=== PATIENT | female | born 1975 ===

== ENCOUNTER 2019-05-21 06:54 | Observation (INO) ==
[~2019-05-21 06:54] MED LIST: QUELICIN (DOSE) ONE
[2019-05-21] MEDS ORDERED: CLINDAMYCIN 900 MG/D5W 900 MG/50 ML IVPB ONE (07:04)
[2019-05-21] MEDS ORDERED: PEPCID ONE (07:04)
[2019-05-21] MEDS ORDERED: TRANSDERM-SCOP ONE (07:04)
[2019-05-21] MEDS ORDERED: REGLAN ONE (07:04)
[2019-05-21] MEDS ORDERED: LR 1,000 ML ONE ×2 (07:04→13:20)
[2019-05-21] MEDS ORDERED: ROBINUL ONE ×3 (07:07→10:20)
[2019-05-21] MEDS ORDERED: DIPRIVAN 1% ONE (07:58)
[2019-05-21] MEDS ORDERED: FENTANYL ONE (07:58)
[2019-05-21] MEDS ORDERED: VERSED ONE (07:58)
[2019-05-21] MEDS ORDERED: XYLOCAINE-MPF 2% ONE (07:59)
[2019-05-21] MEDS ORDERED: ZOFRAN ONE (07:59)
[2019-05-21] MEDS ORDERED: DECADRON ONE ×2 (07:59→09:52)
[2019-05-21] MEDS ORDERED: NORCURON ONE (07:59)
[2019-05-21] MEDS ORDERED: STERILE WATER INJ. ONE (07:59)
[2019-05-21] MEDS ORDERED: BACTROBAN OINTMENT ONE (09:00)
[2019-05-21] MEDS ORDERED: XYLOCAINE 1%/EPI 1:100,000 ONE (09:00)
[2019-05-21] MEDS ORDERED: BSS OPHTH SOLN ONE (09:00)
[2019-05-21] MEDS ORDERED: CLINDAMYCIN ONE (09:01)
[2019-05-21] MEDS ORDERED: NEO-SYNEPHRINE ONE (09:44)
[2019-05-21] MEDS ORDERED: NEOSTIGMINE ONE (10:20)
[2019-05-21] MEDS: DILAUDID ONE ×4 (12:40→12:59)
[2019-05-21] MEDS ORDERED: PERCOCET-5 ONE (13:12)
[2019-05-21] MEDS ORDERED: DILAUDID IV PRN (14:28)
[2019-05-21] MEDS: LR 1,000 ML IV SCH (14:32)
[2019-05-21] MEDS ORDERED: PERCOCET-5 PO PRN (14:35)
[2019-05-21] MEDS ORDERED: VENTOLIN HFA INH PRN (14:37)
[2019-05-21] MEDS ORDERED: ZOFRAN IV PRN (14:49)
[2019-05-21] MEDS: CLINDAMYCIN 600 MG/D5W 600 MG/50 ML IVPB IV SCH (16:24)
[2019-05-21] MEDS: PERCOCET-5 PO PRN ×2 (17:55→22:06)
--- NOTE | 2019-05-21 21:06 | OPERATIVE NOTE ---
PROCEDURE DATE: 05/21/2019 PREOPERATIVE DIAGNOSES: 1. Thyroid nodules. 2. Dysphagia. 3. Hoarseness. POSTOP DIAGNOSIS: 1. Thyroid nodules. 2. Dysphagia. 3. Hoarseness. PROCEDURE: Total thyroidectomy no complications. ANESTHESIA: General with endotracheal intubation. DESCRIPTION OF PROCEDURE: This is a 44-year-old lady who has had a partial thyroid lobectomy done on 2010 after which she had hoarseness, limited range in her voice and has developed compressive symptoms of pressure from the enlargement of the right thyroid lobe. She has had an FNA and has been on suppressive thyroid hormone. We have discussed options, and she was very adamant that she wished to have the entire thyroid removed, as she is already currently taking Synthroid and she was concerned about not only the masses but the compressive symptoms developing due to the size of the thyroid. The patient was identified, consented. Options were reviewed. She was brought to the operating room, placed in supine position where general anesthesia was induced with endotracheal intubation. The previous surgical scar was noted in the collar region, this was marked in the holding area. One percent lidocaine with 1:100,000 epinephrine was injected into the scar incision site region. The patient was prepped and draped in usual sterile fashion. Incision was created down to and through platysma. Subplatysmal flaps were elevated inferiorly and superiorly. Meticulous attention was paid to hemostasis using bipolar and Covidien coblation as well as clips throughout the case. The strap muscles were in midline and the left thyroid lobe was dissected. The recurrent laryngeal nerve on the left was identified and traced preserved throughout the case meticulously. Parathyroid glands were left intact at the superior pole. The inferior pole had been partially dissected in the past, but the thyroid looked to be about the same size as a normal thyroid. The left thyroid specimen was sent off after complete dissection and hemostasis. The right thyroid was thus similarly dissected. The inferior and superior pedicles were secured with clips and LigaSure. The middle thyroid vein was ligated. The recurrent laryngeal nerve was identified and preserved throughout the case. The complete thyroid right lobe was delivered with the isthmus as a separate specimen. The drain was brought out through a separate stab incision. Strap muscles were secured in the midline with simple interrupted 4-0 Vicryl over the drain. The neck incision was closed with a layered closure with deep and intermediate 4-0 Vicryl simple interrupted stitches and a superficial subcuticular 4-0 Prolene stitch in a running subcuticular closure. Steri-Strips were applied. Mild compression dressing. The patient tolerated the procedure well, was allowed to recover from anesthesia, extubated and transferred to the recovery room where she will be monitored for her calcium levels acutely and will stay in the ICU. Her voice was good in the recovery room and breathing is satisfactory as well. cc: Shaun Ellis MD
[2019-05-21 21:42] LABS: ALBUMIN 3.8 g/dL (3.5-5.0); CALCIUM 8.6 mg/dL (8.8-10.2)
--- NOTE | 2019-05-21 22:24 | HISTORY AND PHYSICAL ---
ADDENDUM: Ms. Pugh is a 44-year-old female who underwent a thyroidectomy with possible parathyroid removal as well. She has been admitted by Dr. Ellis who is the ENT specialist, who did the surgery. We have been consulted for medical management. PHYSICAL EXAMINATION: VITAL SIGNS: Her current blood pressure is 113/69, pulse of 78, respiration is 10, temperature 98.9 degrees. The patient's O2 saturation is 93% to 95%. GENERAL: Ms. Pugh is a 44-year-old female. She was actually on the bedside commode, did not have any complaints. She has a drain in her thyroid in the anterior neck from the recent thyroid/parathyroid surgery. She did not seem to be in any distress. HEENT: Mucosa is pink, slightly dry. Anicteric. Acyanotic. NECK: Supple. CHEST: Clear to auscultation. CARDIOVASCULAR: Regular rate and rhythm. ABDOMEN: Soft. EXTREMITIES: No pedal edema. LABORATORY DATA: Immediate calcium after surgery was 8.4. Albumin was 3.4, corrected will be 9, which is okay. PTH is low. ASSESSMENT AND PLAN: Immediate s/p thyroidectomy/parathyroid removal as well. I am not 100% sure what surgery was really done. The official report is not out yet; however, we have been consulted to be aware of the possible low calcium after this type of surgery, which makes me suspect that probably parathyroid was also involved. We are going to continue to monitor this every 8 hours, keep the calcium within therapeutic range. If it becomes remarkably low we will replace. Please refer to the details of the history and physical that has been dictated by the nurse practitioner in the chart. cc: MD Shaun Coyle MD [facility]
--- NOTE | 2019-05-21 22:30 | CONSULTATION ---
DATE OF CONSULTATION: 05/21/2019 REASON FOR CONSULTATION: Medical management of perioperative calcium. HISTORY OF PRESENTING ILLNESS: This is a 44-year-old female who had a total thyroidectomy today by Dr. Ellis from ENT, now admitted to the intensive care unit. States that she had had a partial thyroidectomy some years ago but was having some increased difficulty swallowing and noted some nodules on the remaining thyroid, so the decision was made to have a total thyroidectomy. We have been consulted for perioperative calcium management. Currently her calcium is 8.4 with an albumin of 3.4, so a corrected calcium score is 8.9. We are rechecking that every 8 hours x1 more tonight. Also, we will check an albumin and a PTH intact. She is alert and awake and answering questions appropriately, states she had some mild nausea, but otherwise pain is under control. So, we will continue to follow this patient throughout the remainder of her hospitalization for further evaluation and treatment. PAST MEDICAL HISTORY: Of hypothyroidism, ADHD and migraines. PAST SURGICAL HISTORY: Of a hysterectomy, a subtotal thyroidectomy, bilateral tubal ligation, and a ganglion cyst to the right wrist. FAMILY HISTORY: Reviewed and noncontributory. SOCIAL HISTORY: She currently lives with a friend, is a former smoker. Denies any alcohol or illicit drug use. ALLERGIES: Morphine and penicillin. HOME MEDICATIONS: She takes a ProAir inhaler p.r.n., Adderall 30 mg p.o. p.r.n. and Synthroid 50 mcg p.o. q.a.m. LABORATORY DATA: She has a calcium of 8.4 and an albumin of 3.4. REVIEW OF SYSTEMS: She denied any fever, chills, blurred vision, dizziness, chest pain, coughing, shortness of breath. She denied any abdominal pain, constipation, diarrhea. She was positive for some mild nausea. Denied any vomiting, burning or hurting with urination. PHYSICAL EXAMINATION: Vital signs: Currently she has a pulse of 92, respirations 14, blood pressure 137/64, saturating 95% on room air. General: This is a 44-year-old female lying in the bed, answers questions appropriately. HEMNT: Normocephalic, atraumatic. Normal ENT inspection. Oropharynx and nares are clear. Eyes: Pupils are equal, round, reactive to light and accommodation. Extraocular movements are intact. Neck: Patient has a dressing to the front of her neck with a drain in place. Dressing dry and intact at this time. Lungs: Clear to auscultation bilaterally with equal lung expansion and chest wall movement. Heart: Regular rate and rhythm. No murmurs, rubs, or gallops. Abdomen: Soft, nontender, nondistended. Bowel sounds are present x4 quadrants. Musculoskeletal: She had 5/5 strength x4 extremities. Neurological: Cranial nerves 2 through 12 appear grossly intact. ASSESSMENT: 1. Status post total thyroidectomy. 2. Hypocalcemia, mild currently. 3. History of attention deficit hyperactivity disorder. PLAN: She was admitted to the intensive care unit, placed on a regular diet. We will recheck an albumin, calcium, and PTH in 8 hours. She is on Dilaudid 1 mg IV q.3 hours p.r.n., clindamycin 600 IV q.8 hours, Zofran 4 mg IV q.4 hours p.r.n. She also has Percocet 5 one p.o. q.4 hours p.r.n. for a pain of 1 to 6 and 2 p.o. q.4 hours p.r.n. pain 7 to 10, and the Dilaudid is to be used for her breakthrough pain. We thank you for the opportunity to follow this patient throughout the remainder of her hospitalization. Further orders after seen by sales and leasing consultant. Dictated by ALEKSANDRA Suarez for Isaak Gutierrez MD cc: ALEKSANDRA Suarez MD Benjamin W. Light, MD
[2019-05-22] MEDS: CLINDAMYCIN 600 MG/D5W 600 MG/50 ML IVPB IV SCH (00:52)
[2019-05-22] MEDS: PERCOCET-5 PO PRN ×4 (02:19→20:00)
[2019-05-22] MEDS: LR 1,000 ML IV SCH ×2 (02:22→14:36)
[2019-05-22 06:23] LABS: ALBUMIN 3.6 g/dL (3.5-5.0); CALCIUM 8.7 mg/dL (8.8-10.2)
[2019-05-22] MEDS ORDERED: SYNTHROID PO SCH (07:00)
--- NOTE | 2019-05-22 09:25 | PROGRESS NOTE ---
DATE: 05/22/2019 SUBJECTIVE: The patient seems to be resting comfortably in bed. She is not complaining of pain. She is not having problems swallowing. She is tolerating p.o. Her calcium level has been stable. PTH borderline low, but within normal limits. I will continue to monitor for now. She has no symptoms of hypocalcemia. Her vital signs are stable. OBJECTIVE: Vital Signs: Temperature 98.2 degrees, pulse 76, respiratory rate 15, blood pressure 128/65, oxygen saturation 97% on room air. HEENT: Head normocephalic. No trauma. PERRLA. Neck: Supple. The whole neck is covered with a dressing, and she has a drain coming out from the anterior part of the neck with some serosanguineous material. She is not having problems swallowing. Chest: Clear to auscultation. No wheezing. No rales. Abdomen: Soft. Extremities: No clubbing, no cyanosis. Neurological: The patient is awake, alert. She is oriented x3. No focal deficits. LABORATORY: Calcium 8.7, albumin 3.6, and PTH 17. ASSESSMENT AND PLAN: 1. Status post total thyroidectomy. Actually, this patient had a partial thyroidectomy done before, and now it has been removed completely. She seems to be stable. No signs of hypocalcemia clinically. We will continue with the same management for now. 2. History of attention-deficit/hyperactivity disorder, aware. We will continue with the same management at this moment. 3. Hypothyroidism. Continue with levothyroxine, usually she takes 50 mcg in the morning. 4. Nutritional status. Continue with the same diet. She seems to be stable. cc: Aiden Pichardo MD
--- NOTE | 2019-05-22 12:44 | PROGRESS NOTE ---
DATE: 05/22/2019 ADMITTING DIAGNOSIS: Thyroid nodules. SUBJECTIVE: This morning she is in good spirits. Pain is under control. Parathyroid hormone and calcium seems stable. She is eating well. OBJECTIVE: Neck with no swelling. Drain is intact with serous fluid roughly 15 mL in the last 12 hours accumulated. IMPRESSION: Postop day 1. She is doing well status post total thyroidectomy. She has had PTH and calcium checks. Dr. Youssef has been monitoring this. I spoke with Dr. Youssef, and he is going to allow her to go home this afternoon after checking several more labs. He will discharge her if he feels her calcium is stable. I have advised the patient to take Rolaids 2 pills 3 times a day for several weeks to help with calcium supplementation. She will see me in the office tomorrow at 10:00 in the morning for drain removal. She has all of her prescriptions including Lortab, antibiotic, and nausea medicine already prescribed, and picked up prior to the procedure. cc: MD Aiden Kim MD
[2019-05-22 13:50] LABS: ALBUMIN 3.4 g/dL (3.5-5.0)
[2019-05-22 18:29] LABS: AGAP 9; ALB/GLOB RATIO 1.3; ALBUMIN 3.4 g/dL (3.5-5.0); ALKALINE PHOSPHATASE 50 U/L (32-104); BUN 9 mg/dL (8-22); CALCIUM 8.1 mg/dL (8.8-10.2); CHLORIDE 101 mmol/L (98-107); COSMO 276; CREATININE 0.9 mg/dL (0.5-0.9); GLUCOSE 98 mg/dL (70-104); GOT 21 U/L (10-30); GPT 32 U/L (10-36); POTASSIUM 3.6 mmol/L (3.5-5.1); SODIUM 139 mmol/L (136-145); TCO2 29 mmol/L (25-35); TOTAL BILIRUBIN 0.24 mg/dL (0.20-1.00); TOTAL PROTEIN 6.1 g/dL (6.3-8.3)
[2019-05-22 20:21] VITALS: BP 117/71
--- NOTE | 2019-05-23 08:27 | DISCHARGE SUMMARY ---
ADMISSION DATE: 05/21/2019 DISCHARGE DATE: 05/22/2019 DISCHARGE DIAGNOSES: 1. Status post total thyroidectomy. 2. Mild hypocalcemia. 3. History of attention-deficit hyperactivity disorder. 4. Dysphagia and hoarseness due to thyroid nodules, status post total thyroidectomy. HOSPITAL COURSE: A 44-year-old female had a total thyroidectomy yesterday 05/21/[address] Ellis from ENT. She was admitted to intensive care unit. She had a partial thyroidectomy some years ago and she started having some problems swallowing and some nodules, so they decided to remove the remaining thyroid. After the thyroidectomy we monitored this patient closely in the ICU. She was placed on pain treatment and also we followed closely the PTH intact and the calcium, and even though it was borderline low, it was not dropping too much, and corrected with albumin it was close to normal. She has no symptoms at all of hypocalcemia. She will be re- evaluated tomorrow by Dr. Ellis in the morning. I do believe she is safe to be discharged today. OBJECTIVE: Vital signs: Temperature 98.2 degrees, pulse 76, respiratory rate 14, blood pressure 118/71, oxygen saturation 97% on room air. HEENT: Head normocephalic, no trauma. She has a dressing around her neck with a drain coming from the anterior part. Chest: Clear to auscultation. No wheezing. No rales. Abdomen: Soft, nontender, nondistended. No hepatosplenomegaly. Extremities: No edema. No clubbing, no cyanosis. Neurological: The patient is awake and alert. She is oriented x3. No focal deficits. LABORATORY: Sodium 139, potassium 3.6, chloride 101, bicarbonate 29, BUN 9, creatinine 0.9, glucose 98, calcium 8.1, albumin 3.4. Corrected albumin is close to 8.6. DISCHARGE MEDICATIONS: She will continue with her home medications including albuterol sulfate, including Adderall 30 mg tablets as needed, and levothyroxine 50 mcg p.o. every morning and Percocet 5 mg/325 mg q.4 hours as needed for pain. cc: Aiden Pichardo MD
== END 2019-05-22 20:30 | disposition home or self-care (01) ==
LOC: ICU 06:54 → OPS 06:54
PROVIDERS: ADMIT Internal Medicine; ATTEND Otolaryngology Otolaryngology/Facial Plastic Surgery